=== PATIENT | male | born 1960 | race Caucasian/White ===

== ENCOUNTER 2022-08-13 10:05 | Outpatient (CLI) | payer OTHER, SELFPAY ==
--- NOTE | 2022-08-13 10:29 | DI.RAD_ITS ---
Exam(s) XR FOOT RT COMPLETE EXAM: XR FOOT RT COMPLETE CLINICAL HISTORY: ONOSET PAIN RT FOOT 2 MONTHS, NO IMPROVING, ? STRESS FX. TECHNIQUE: 2D digital imaging was performed of the right foot. Three images were obtained. AP, obl ique and lateral views were obtained. COMPARISON: No exams were available for comparison FINDINGS: BONES: No acute fracture is present. No bony destructive lesion is seen. JOINTS: No dislocation present. Mild degenerative changes are seen at the 1st MTP joint with joint sp yana narrowing and periarticular spurring. SOFT TISSUE: Normal. IMPRESSION: 1. No acute fracture or dislocation. 2. 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 DATA REPOSITORY: RADIATION DOSE DELIVERED:
[2022-08-16 15:11] LABS: 25-Hydroxy D Total 30 ng/mL; 25-Hydroxy D2 <4.0 ng/mL; 25-Hydroxy D3 30 ng/mL
== END 2022-08-13 10:25 ==
PROVIDERS: Visit Provider General Practice
DX: M79.671 Pain in right foot (principal)
CPT/HCPCS: 36415; 82306; 73630

== ENCOUNTER 2023-03-18 12:37 | Outpatient (CLI) | payer BC, SELFPAY ==
[2023-02-17 12:39] LABS: Calculated LDL 132 mg/dL (<100); Cholesterol 212 mg/dL (<200); HDL Cholesterol 44 mg/dL (40-60); Triglyceride 181 mg/dL (<150)
[2023-02-17 22:33] LABS: PSA, Screening 1.6 ng/mL (<=4.5)
[2023-02-22 12:26] LABS: 25-Hydroxy D Total 66 ng/mL; 25-Hydroxy D2 <4.0 ng/mL; 25-Hydroxy D3 66 ng/mL
== END 2023-03-18 12:38 | disposition home or self-care (01) ==
LOC: LBO 12:37
PROVIDERS: Visit Provider General Practice
DX: R35.1 Nocturia (principal); E55.9 Vitamin D deficiency, unspecified; Z13.220 Encounter for screening for lipoid disorders
CPT/HCPCS: 36415; 80061; 82306; 84153